=== PATIENT | female | born 1965 | race Caucasian/White ===

== ENCOUNTER 2021-12-27 20:58 | Emergency (ER) | payer BC ==
[~2021-12-27] VITALS: Ht 165.1 cm; Wt 60.8 kg
--- NOTE | 2021-12-27 21:18 | NUR ---
PT BIB [facility] FROM HOME AFTER SYNCOPAL EPISODE IN THE BATHROOM, PT STATES SHE PASSED OUT, C/O SAMUELS AND NAUSUEA. A/O X4, NO SOB OR LABORED BREATHING, AFEBRILE. DENIES CP/PRESSURE. CLEAR SPEECH/COMPLETE SENTENCES. DR. ESCALANTE AT BEDSIDE, MSE IN PROGRESS.
--- NOTE | 2021-12-27 21:40 | NUR ---
PT TAKEN DOWN FOR CT.
[2021-12-27 21:42] LABS: HEMATOCRIT 37.6 % (31.2-41.9); MEAN CORPUSCULAR HEMOGLOBIN 27.6 uug (24.7-32.8); PLATELET COUNT (AUTO) 253 K/uL (179-408)
[2021-12-27 22:00] LABS: ALANINE AMINOTRANSFERASE 77 U/L (14-59); ALKALINE PHOSPHATASE 126 U/L (50-136); ASPARTATE AMINOTRANSFERASE 35 U/L (15-37); BILIRUBIN,DIRECT 0.1 mg/dL (0.0-0.2); BILIRUBIN,TOTAL 0.4 mg/dL (0.2-1.0); CARBON DIOXIDE 25 mmol/L (21-32); CHLORIDE 100 mmol/L (98-107); CREATININE 0.8 mg/dL (0.6-1.3); GLUCOSE 163 mg/dL (74-106); POTASSIUM 3.6 mmol/L (3.5-5.1); TOTAL PROTEIN, SERUM 7.6 g/dL (6.4-8.2); UREA NITROGEN, BLOOD 18 mg/dL (7-18)
[2021-12-27] MEDS ORDERED: NICARDIPINE IN NS 200 ML IV PRN (22:30)
[2021-12-27] MEDS ORDERED: ONDANSETRON 4 MG/2 ML VIAL IV ONE (22:30)
[2021-12-27] MEDS ORDERED: MORPHINE SULFATE 4 MG/1 ML DISP.SYRIN IV ONE (22:30)
[2021-12-27] MEDS ORDERED: MORPHINE SULFATE 4 MG/1 ML DISP.SYRIN ONE (22:33)
--- NOTE | 2021-12-27 23:00 | NUR ---
PT TAKEN TO CT.
--- NOTE | 2021-12-27 23:20 | NUR ---
FAXED OVER FACE SHEET AND CLINICALS TO [facility] TO [facility] AT [phone], RECEIVED FAX CONFIRMATION.
--- NOTE | 2021-12-28 00:19 | NUR ---
GAVE REPORT TO VANI FROM [facility]. [id number] AT BEDSIDE.
--- NOTE | 2021-12-28 00:35 | NUR ---
Patient Tranfers to outside Facility Physician: DR. WALSH Location: [facility] PT TRANSFERED IN STABLE CONDITION, NO CHANGES IN LOC, DENIES ANY PAIN/DISCOMFORT. NO SOB OR LABORED BREATHING, AFEBRILE. ACCOMPANIED BY .
[2021-12-28] MEDS ORDERED: ONDANSETRON 4 MG/2 ML VIAL ONE (00:41)
[2021-12-28] MEDS ORDERED: ONDANSETRON 4 MG/2 ML VIAL IV ONE (00:45)
== END 2021-12-28 00:38 | disposition short-term general hospital (02) ==
LOC: ER 21:02
DX: R55 Syncope and collapse (principal); Z20.822 Contact with and (suspected) exposure to COVID-19
CPT/HCPCS: 36415; 70450; 72125; 80048; 80076; 84484; 84702; 85025; 87426; 93005; 96374; 96375; 96376; 99285; J2270; J2405 ×2; A4663